=== PATIENT | female | born 1960 | race Caucasian/White ===

== ENCOUNTER 2020-03-28 19:41 | Emergency (ER) | payer MEDICAID ==
[~2020-03-28] VITALS: Ht 180.3 cm; Wt 79.1 kg
[~2020-03-28 19:41] MED LIST: HYDR-4383 PO; METH-360 PO
[2020-03-28 19:45] VITALS: BP 116/92
[2020-03-28] MEDS ORDERED: TETanus/Pertussis (Acell)/Diphther VAC/PF (Tdap-Adult) 0.5ml syringe IMVAC ONE (20:40)
[2020-03-28] MEDS ORDERED: HYDROcodone/acetaminophen 5mg/325mg tablet PO ONE (21:30)
== END 2020-03-28 22:05 | disposition home or self-care (01) ==
LOC: ER 21:49
DX: S61.211A Laceration without foreign body of left index finger without damage to nail, initial encounter (principal); G89.29 Other chronic pain; M54.9 Dorsalgia, unspecified; J44.9 Chronic obstructive pulmonary disease, unspecified; Z88.5 Allergy status to narcotic agent; Z79.899 Other long term (current) drug therapy; W45.8XXA Other foreign body or object entering through skin, initial encounter; Y93.89 Activity, other specified; Y92.89 Other specified places as the place of occurrence of the external cause; Y99.8 Other external cause status
CPT/HCPCS: 12001; 90471; 90715; 99283

== ENCOUNTER 2020-11-13 14:26 | Emergency (ER) | payer MEDICAID ==
[~2020-11-13] VITALS: Ht 172.7 cm; Wt 69.7 kg
[2020-11-13 14:34] VITALS: BP 122/72
[2020-11-13 15:07] LABS: BASOPHILS % (AUTO) 0.7 % (0-1); EOSINOPHILS # (AUTO) 0.1 X10'3 (0-0.9); EOSINOPHILS % (AUTO) 1.9 % (0-6); HEMATOCRIT 38.7 % (35.0-45.0); HEMOGLOBIN 13.6 g/dl (12.0-16.0); LYMPHOCYTES # (AUTO) 1.8 X10'3 (1.1-4.8); LYMPHOCYTES % (AUTO) 26.8 % (21-51); MEAN CORPUSCULAR HGB CONC 35.1 g/dL (33.0-36.5); MEAN CORPUSCULAR VOLUME 96.8 FL (78-98); MEAN PLATELET VOLUME 7.1 FL (7.4-10.4); MONOCYTES # (AUTO) 0.5 X10'3 (0-0.9); MONOCYTES % (AUTO) 7.9 % (2-12); NEUTROPHILS # (AUTO) 4.2 X10'3 (1.8-7.7); NEUTROPHILS % (AUTO) 62.7 % (42-75); PLATELET COUNT 370 X10'3 (140-440); RED CELL DISTRIBUTION WIDTH 14.3 % (11.5-14.5); WHITE BLOOD COUNT 6.8 X10'3 (4.5-11.0)
[2020-11-13 15:23] LABS: ALANINE AMINOTRANSFERASE 27 U/L (12-78); ALBUMIN 3.3 G/DL (3.4-5.0); ALKALINE PHOSPHATASE 88 IU/L (46-116); ANION GAP 5 (8-16); ASPARTATE AMINO TRANSFERASE 23 U/L (10-37); BILIRUBIN,TOTAL 0.3 MG/DL (0.1-1.0); BLOOD UREA NITROGEN 13 MG/DL (7-18); BUN/CREATININE RATIO 13.4 (6.6-38.0); CALCIUM 9.7 MG/DL (8.5-10.1); CHLORIDE 108 MMOL/L (99-107); CREATININE 0.97 MG/DL (0.40-0.90); GLUCOSE 109 MG/DL (70-104); POTASSIUM 3.2 MMOL/L (3.5-5.1); SODIUM 144 MMOL/L (135-145); TOTAL PROTEIN 6.6 G/DL (6.4-8.2); eGFR 59 ML/MIN
[2020-11-14] MEDS ORDERED: PRED20TA PO (07:50)
[2020-11-14] MEDS ORDERED: ACET-812 PO (07:50)
[2020-11-14] MEDS ORDERED: IBUP-1985 PO (07:50)
[2020-11-14] MEDS ORDERED: CYCL-1 PO (07:50)
[2020-11-14] MEDS ORDERED: ALBU8.5H17 INH (07:52)
== END 2020-11-14 00:39 | disposition left against medical advice (07) ==
LOC: ER 14:27
DX: R06.02 Shortness of breath (principal); Z53.21 Procedure and treatment not carried out due to patient leaving prior to being seen by health care provider
CPT/HCPCS: 36415; 71045; 80053; 83880; 84484; 85025; 93005

== ENCOUNTER 2020-11-14 07:15 | Emergency (ER) | payer MEDICAID ==
[~2020-11-14] VITALS: Ht 172.7 cm; Wt 70.2 kg
[2020-11-14] MEDS ORDERED: IBUP-1985 PO (07:50)
[2020-11-14] MEDS ORDERED: CYCL-1 PO (07:50)
[2020-11-14] MEDS ORDERED: orphenadrine citrate 60mg/2ml inj. IM ONE (07:50)
[2020-11-14] MEDS ORDERED: ketorolac trometh inj. 60 MG/2 ML VIAL IM ONE (07:50)
[2020-11-14] MEDS ORDERED: ACET-812 PO (07:50)
[2020-11-14] MEDS ORDERED: acetaminophen 325mg tablet PO ONE (07:50)
[2020-11-14] MEDS ORDERED: PRED20TA PO (07:50)
[2020-11-14] MEDS ORDERED: ALBU8.5H17 INH (07:52)
[2020-11-14 08:14] VITALS: BP 157/83
== END 2020-11-14 08:34 | disposition home or self-care (01) ==
LOC: ER 07:15
DX: M54.2 Cervicalgia (principal); J44.9 Chronic obstructive pulmonary disease, unspecified; G89.29 Other chronic pain; F17.200 Nicotine dependence, unspecified, uncomplicated; Z88.8 Allergy status to other drugs, medicaments and biological substances; Z87.01 Personal history of pneumonia (recurrent); Z79.899 Other long term (current) drug therapy
CPT/HCPCS: 96372; 99284; J1885; J2360

== ENCOUNTER 2021-05-03 16:56 | Emergency (ER) | payer MEDICAID ==
[~2021-05-03] VITALS: Ht 172.7 cm; Wt 65.7 kg
[~2021-05-03 16:56] MED LIST changes: +ACET-812 PO; +ALBU8.5H17 INH; +CYCL-1 PO; +IBUP-1985 PO
[2021-05-03 17:01] VITALS: BP 135/81
== END 2021-05-03 22:16 | disposition left against medical advice (07) ==
LOC: ER 16:58
DX: M54.2 Cervicalgia (principal); Z53.21 Procedure and treatment not carried out due to patient leaving prior to being seen by health care provider

== ENCOUNTER 2022-08-09 08:38 | Emergency (ER) | payer MEDICAID ==
[~2022-08-09] VITALS: Ht 177.8 cm; Wt 71.4 kg
[2022-08-09 09:16] LABS: BASOPHILS # (AUTO) 0.1 X10'3 (0-0.2); BASOPHILS % (AUTO) 0.7 % (0-1); EOSINOPHILS # (AUTO) 0.4 X10'3 (0-0.9); EOSINOPHILS % (AUTO) 5.6 % (0-6); HEMATOCRIT 40.2 % (35.0-45.0); HEMOGLOBIN 13.6 g/dl (12.0-16.0); LYMPHOCYTES # (AUTO) 1.9 X10'3 (1.1-4.8); LYMPHOCYTES % (AUTO) 24.3 % (21-51); MEAN CORPUSCULAR HEMOGLOBIN 32.7 PG (27.0-31.0); MEAN CORPUSCULAR HGB CONC 33.9 g/dL (33.0-36.5); MEAN CORPUSCULAR VOLUME 96.6 FL (78-98); MEAN PLATELET VOLUME 7.5 FL (7.4-10.4); MONOCYTES # (AUTO) 0.7 X10'3 (0-0.9); MONOCYTES % (AUTO) 8.5 % (2-12); NEUTROPHILS # (AUTO) 4.7 X10'3 (1.8-7.7); NEUTROPHILS % (AUTO) 60.9 % (42-75); PLATELET COUNT 289 X10'3 (140-440); RED BLOOD COUNT 4.17 X10'6 (4.20-5.60); RED CELL DISTRIBUTION WIDTH 13.7 % (11.5-14.5); WHITE BLOOD COUNT 7.7 X10'3 (4.5-11.0)
[2022-08-09 09:30] LABS: ALANINE AMINOTRANSFERASE 19 U/L (12-78); ALBUMIN 3.8 G/DL (3.4-5.0); ALBUMIN/GLOBULIN RATIO 1.2 (1.1-1.5); ALKALINE PHOSPHATASE 66 IU/L (46-116); ANION GAP 6 (8-16); ASPARTATE AMINO TRANSFERASE 13 U/L (10-37); BILIRUBIN,TOTAL 0.5 MG/DL (0.1-1.0); BLOOD UREA NITROGEN 13 MG/DL (7-18); CALCIUM 8.9 MG/DL (8.5-10.1); CHLORIDE 105 MMOL/L (99-107); CREATININE 1.08 MG/DL (0.40-0.90); GLUCOSE 97 MG/DL (70-104); POTASSIUM 3.6 MMOL/L (3.5-5.1); SODIUM 141 MMOL/L (135-145); TOTAL CARBON DIOXIDE 29.6 MMOL/L (24-32); TOTAL PROTEIN 7.1 G/DL (6.4-8.2); eGFR 52 ML/MIN
[2022-08-09] MEDS ORDERED: HYDROcodone/acetaminophen 5mg/325mg tablet PO ONE (09:45)
[2022-08-09 10:20] VITALS: BP 132/89
== END 2022-08-09 10:21 | disposition home or self-care (01) ==
LOC: ER 08:38
DX: G89.29 Other chronic pain (principal); M25.552 Pain in left hip; M54.9 Dorsalgia, unspecified; J44.9 Chronic obstructive pulmonary disease, unspecified; Z88.5 Allergy status to narcotic agent; Z79.899 Other long term (current) drug therapy; Z79.1 Long term (current) use of non-steroidal anti-inflammatories (NSAID)
CPT/HCPCS: 36415; 73502; 80053; 85025; 85651; 99284

== ENCOUNTER 2022-10-02 09:14 | Emergency (ER) | payer MEDICAID ==
[~2022-10-02] VITALS: Ht 167.6 cm; Wt 89.0 kg
[2022-10-02 09:19] VITALS: BP 136/105
[2022-10-02] MEDS ORDERED: HYDROcodone/acetaminophen 10/325mg tab PO ONE (09:35)
[2022-10-02 10:46] LABS: BASOPHILS # (AUTO) 0.1 X10'3 (0-0.2); EOSINOPHILS # (AUTO) 0.6 X10'3 (0-0.9); EOSINOPHILS % (AUTO) 8.5 % (0-6); HEMATOCRIT 39.8 % (35.0-45.0); HEMOGLOBIN 13.6 g/dl (12.0-16.0); LYMPHOCYTES # (AUTO) 2.1 X10'3 (1.1-4.8); LYMPHOCYTES % (AUTO) 32.8 % (21-51); MEAN CORPUSCULAR HEMOGLOBIN 32.5 PG (27.0-31.0); MEAN CORPUSCULAR HGB CONC 34.2 g/dL (33.0-36.5); MEAN CORPUSCULAR VOLUME 95.2 FL (78-98); MEAN PLATELET VOLUME 7.6 FL (7.4-10.4); MONOCYTES # (AUTO) 0.6 X10'3 (0-0.9); NEUTROPHILS # (AUTO) 3.2 X10'3 (1.8-7.7); NEUTROPHILS % (AUTO) 48.7 % (42-75); PLATELET COUNT 285 X10'3 (140-440); RED BLOOD COUNT 4.18 X10'6 (4.20-5.60); RED CELL DISTRIBUTION WIDTH 13.9 % (11.5-14.5); WHITE BLOOD COUNT 6.6 X10'3 (4.5-11.0)
[2022-10-02 11:01] LABS: ALANINE AMINOTRANSFERASE 18 U/L (12-78); ALBUMIN 3.5 G/DL (3.4-5.0); ALKALINE PHOSPHATASE 87 IU/L (46-116); ANION GAP 10 (8-16); ASPARTATE AMINO TRANSFERASE 18 U/L (10-37); BILIRUBIN,TOTAL 0.2 MG/DL (0.1-1.0); BLOOD UREA NITROGEN 14 MG/DL (7-18); BUN/CREATININE RATIO 12.1 (10.0-20.0); CALCIUM 8.8 MG/DL (8.5-10.1); CHLORIDE 105 MMOL/L (99-107); CREATININE 1.16 MG/DL (0.40-0.90); GLUCOSE 87 MG/DL (70-104); POTASSIUM 4.1 MMOL/L (3.5-5.1); SODIUM 142 MMOL/L (135-145); TOTAL CARBON DIOXIDE 27.2 MMOL/L (24-32); TOTAL PROTEIN 6.9 G/DL (6.4-8.2); eGFR 47 ML/MIN
[2022-10-02] MEDS ORDERED: HYDR-3965 PO (11:51)
[2022-10-02] MEDS ORDERED: CYCL-1 PO (11:51)
[2022-10-02] MEDS ORDERED: NALO4SPR BOTHNARES (11:51)
== END 2022-10-02 12:04 | disposition home or self-care (01) ==
LOC: ER 09:15
DX: G89.29 Other chronic pain (principal); M25.552 Pain in left hip; J44.9 Chronic obstructive pulmonary disease, unspecified; Z88.5 Allergy status to narcotic agent; Z87.81 Personal history of (healed) traumatic fracture; Z79.899 Other long term (current) drug therapy; W19.XXXA Unspecified fall, initial encounter; Y93.89 Activity, other specified; Y92.89 Other specified places as the place of occurrence of the external cause; Y99.8 Other external cause status
CPT/HCPCS: 36415; 73502; 80053; 85025; 85651; 99284

== ENCOUNTER 2022-10-31 17:48 | Emergency (ER) | payer MEDICAID ==
[~2022-10-31] VITALS: Ht 177.8 cm; Wt 74.5 kg
[~2022-10-31 17:48] MED LIST changes: +HYDR-3972 PO; +NALO4SPR BOTHNARES
[2022-10-31 18:06] VITALS: BP 114/93; PULSE 98; RESP 18; TEMP 98.4; O2SAT 100
[2022-10-31] MEDS ORDERED: IBUP-1986 PO (18:10)
[2022-10-31] MEDS ORDERED: CEPH-585 PO (18:10)
== END 2022-10-31 18:20 | disposition home or self-care (01) ==
LOC: ER 17:49
DX: L03.312 Cellulitis of back [any part except buttock and flank] (principal); J44.9 Chronic obstructive pulmonary disease, unspecified; Z88.5 Allergy status to narcotic agent; Z79.1 Long term (current) use of non-steroidal anti-inflammatories (NSAID); Z79.899 Other long term (current) drug therapy
CPT/HCPCS: 99283

== ENCOUNTER 2025-04-04 07:53 | Emergency (ER) | payer MEDICAID ==
[~2025-04-04] VITALS: Ht 177.8 cm; Wt 79.2 kg
[~2025-04-04 07:53] MED LIST changes: -HYDR-3972 PO; -IBUP-1985 PO; +IBUP-1986 PO; +IBUP600T52 PO
--- NOTE | 2025-04-04 09:04 | RADIOLOGY REPORT ---
EXAM: DI KNEE, COMP 4 VW MIN INDICATION: KNEE PAIN TECHNIQUE: Multiple radiographic views of the left knee and ankle were obtained. COMPARISON: None FINDINGS/IMPRESSION: Question nondisplaced proximal left fibular fracture. No dislocations. Minimal knee effusion. Mild soft tissue swelling about the ankle.
--- NOTE | 2025-04-04 09:05 | RADIOLOGY REPORT ---
DI HIP UNILATERAL 2-3 VIEWS INDICATION: HIP PAIN TECHNICAL DATA: Single pelvic view and Frontal and frog lateral views were obtained of the left hip COMPARISON: HIP UNILATERAL 2 VIEWS on DOS: 10/02/22, HIP UNILATERAL 2 VIEWS on DOS: 08/09/22 FINDINGS/IMPRESSION: 1. Bilateral hip prosthesis. No hardware complications/loosening. 2. No acute osseous fracture or dislocations. 3. No acute soft tissue abnormalities.
--- NOTE | 2025-04-04 09:12 | Physician Documentation ---
History of Present Illness ~ Chief Complaint: Mechanical Fall Stated Complaint: FELL AND HURT LEFT HIP AND LEFT KNEE Time Seen by MD: 09:00 Primary Medical Doctor: n/a Tetanus within 5 Years?: Yes Medication Reconciliation Allergies: Coded Allergies: codeine (Verified Allergy, Unknown, 04/04/25) Scheduled Acetaminophen (Tylenol Extra Strength), 2 TABLET PO Q6H Cyclobenzaprine* (Cyclobenzaprine*), 1 TAB PO HS Cyclobenzaprine* (Cyclobenzaprine*), 1 TAB PO Q8H Cyclobenzaprine* (Cyclobenzaprine*), 1 TAB PO HS Hydrocodone/Acetaminophen (Dukedom 5-325 Tablet), 1 TAB PO TID PRN Ibuprofen (Ibuprofen), 1 TAB PO Q6H Ibuprofen (Ibuprofen), 1 TAB PO Q8H Methocarbamol (Robaxin-750), 1 TAB PO Q8H Naloxone HCl (Narcan), 1 SPRAYS BOTHNARES ONCE Scheduled PRN Albuterol Sulfate (Proair Hfa), 2 PUFFS INH Q4HPRN PRN for wheezing Past Medical History Past Medical History: No Pertinent History, COPD, Pneumonia, Chronic Pain, Chronic Back Pain Past Surgical History: orthopedic surgeries Drug Use: none Lives In: Home Occupation: employed Physical Exam Vital Signs: Temperature: 98.5, Source: Oral, Heart Rate: 74, Respiratory Rate: 18, BP: 141/72, Pulse Oximetry: 98, Weight: 79.200 Oxygen Flow Rate: 0 Progress Results/Orders Results/Orders Orders - ALEKS WASHINGTON MD Knee, Complete (04/04/25 08:11) Hip Unilateral 2-3 Views (04/04/25 08:11) Ct Lower Extremity (04/04/25 11:11) Completed Orders - ALEKS WASHINGTON MD Knee, Complete (04/04/25 08:11) Hip Unilateral 2-3 Views (04/04/25 08:11) Hydrocodone/Apap 10/325 (Dukedom 10/325mg (04/04/25 09:35) Ct Lower Extremity (04/04/25 11:11) Medications Received in ER Medications (Trade) Dose Ordered Sig/Dane Route PRN Reason Start Time Stop Time Status Last Admin Dose Admin (Dukedom 10/325mg tab) 1 tab ONCE ONCE PO 04/04/25 09:35 04/04/25 09:36 DC 04/04/25 09:42 1 TAB Vital Signs 04/04/25 04/04/25 04/04/25 04/04/25 08:08 08:21 09:31 09:36 Temp 97.6 98.5 98.5 Pulse 80 74 62 Resp 16 18 16 18 B/P (MAP) 121/82 141/72 (95) 156/76 (102) Pulse Ox 98 98 100 O2 Flow Rate 0 0 04/04/25 04/04/25 09:42 10:57 Pulse 68 Resp 18 15 B/P (MAP) 158/88 (111) Pulse Ox 99 Medical Decision Making Additional information obtaine: N/A Findings Patient has sustained a mechanical fall two days ago. She has left hip and left knee pain. She has been ambulatory. Imaging ordered. Differential Dx:Considerations: Include: Fracture(s), Contusion(s), Hematoma(s); Unlikely: Closed head injury, Cardiac injury, Intraabdominal injury, Pneumothorax, Cerebral contusion, Pulmonary contusion, Spine injury, Tracheal injury, Urological injury, Vascular injury, Abrasion(s), Foreign body(s), Laceration(s), Encephalopathy, Other Departure Disposition: LEFT AGAINST MEDICAL ADVICE Impression: Primary Impression: Left against medical advice Additional Impression: Fall Condition: Stable Referrals: NO PRIMARY CARE PROVIDER (PCP) Signature Scribe Signature: . Attestation: ALEKS RECIO MD Apr 04, 2025 09:12
[2025-04-04 09:36] VITALS: TEMP 98.5
[2025-04-04] MEDS: HYDROcodone/acetaminophen 10/325mg tab PO ONE (09:42)
[2025-04-04 10:57] VITALS: BP 158/88; PULSE 68; RESP 15; O2SAT 99
--- NOTE | 2025-04-04 11:42 | RADIOLOGY REPORT ---
INDICATION: Left knee, nondiagnostic x-ray COMPARISON: None TECHNIQUE: CT of the left lower extremity was performed without contrast. Volume transverse images were obtained and reconstructed in multiple planes using bone and soft tissue algorithms. Radiation Dose Information: CT Dose: CTDI volume is 16.8 mGy. Dose-length product is 542 mGy*cm FINDINGS: The alignment is normal. The joint spaces are normal. There is no fracture, dislocation or aggressive osseous lesion. Moderate knee effusion The soft tissues are normal. IMPRESSION: 1. No acute fracture or dislocation. 2. Moderate knee effusion. 3. If there is ongoing concern for occult fracture. Consider correlation with knee MRI. All CT scans at this medical facility are performed using dose modulation techniques as appropriate to a performed exam including the following: Automated exposure control was utilized; adjustment of the MA and/or KV according to patient size; and use of iterative reconstruction technique.
== END 2025-04-04 14:43 | disposition left against medical advice (07) ==
LOC: ER 07:53
DX: M25.552 Pain in left hip (principal); G89.29 Other chronic pain; Z88.5 Allergy status to narcotic agent; Z79.899 Other long term (current) drug therapy; Z98.890 Other specified postprocedural states; W18.39XA Other fall on same level, initial encounter; Y93.89 Activity, other specified; Y92.89 Other specified places as the place of occurrence of the external cause; Y99.8 Other external cause status
CPT/HCPCS: 73502; 73564; 73700; 99284